=== PATIENT | female | born 1990 | race Caucasian/White ===

== ENCOUNTER 2020-08-30 18:54 | Emergency (ER) | payer BC, SELFPAY ==
--- NOTE | ~2020-08-30 | XR_ITS ---
XR abdomen/kub 1V DATE: 08/30/2020 20:31 INDICATION: Right flank pain today TECHNIQUE: COMPARISON: None FINDINGS: An approximately 5 mm calcification overlies the distal right ureter at the ureterovesical junction, corresponding to the calcified calculus documented on 08/30/[address] abdomen pelv is examination. No other urinary tract calcification is evident. The psoas shadows are intact. No visceromegaly is evident. No evidence of bowel obstruction. An IUD overlies the central pelvis. Included skeletal structures are unremarkable. IMPRESSION: Distal right ureteral calcified approximately 5 mm calculus Reviewed, dictated and finalized at [facility]. Reviewed, dictated and finalized at [facility].
--- NOTE | ~2020-08-30 | CT_ITS ---
EXAMINATION: CT abdomen pelvis wo con DATE: 08/30/2020 20:12 INDICATION: Right flank pain, dysuria TECHNIQUE: Computed tomography (CT) of the abdomen and pelvis was performed without intravenous contr ast. Automated exposure control and iterative reconstruction technique were employed. Exam dose: 742 .44 mGy-cm total exam DLP. COMPARISON: None. FINDINGS: Lung bases are clear. Normal heart size. No pericardial or pleural effusion. The liver, spleen, pancreas, gallbladder, bile ducts and pancreatic duct as well as adrenal glands ap pear normal. No renal mass lesion is evident on this limited noncontrast examination. There is a 3 x 5 mm distal right ureteral calculus with moderate right hydroureteronephrosis as a res ult. No other urinary tract calculus. The urinary bladder is evacuated and not optimally evaluated. IUD within the uterus. The uterus, adnexal areas are unremarkable. Normal appendix. No bowel obstruction, bowel wall thickening, pneumatosis or intraperitoneal free air . Normal caliber of the abdominal aorta. No intraperitoneal or retroperitoneal or pelvic mass lesion or adenopathy or ascites. Included skeletal structures are unremarkable. IMPRESSION: 3 x 5 mm distal right ureteral calculus with moderate right hydroureteronephrosis Reviewed, dictated and finalized at [facility]. Reviewed, dictated and finalized at [facility]. IMPRESSION: 3 x 5 mm distal right ureteral calculus with moderate right hydrou reteronephrosis
[2020-08-30 18:56] VITALS: BP 136/86; PULSE 88; RESP 18; TEMP 36.4; O2SAT 99
--- NOTE | 2020-08-30 19:11 | ED.ABDPAIN ---
HPI - Abdominal Pain General Chief Complaint: Abdominal Pain Stated Complaint: r flank pain Time Seen by Provider: 08/30/20 19:05 Source: RN notes reviewed History of Present Illness HPI narrative: Patient presents to emergency department from home for right flank pain. Patient states pain began suddenly around noon today pain is located in the right flank and radiates around to the right side of the abdomen associate with mild nausea denies any fevers or chills chest pain, shortness of breath, vomiting, diarrhea or any other symptoms. Patient states that she took Tylenol for pain at home with minimal relief Related Data Allergies Allergy/AdvReac Type Severity Reaction Status Date / Time No Known Allergies Allergy Unverified 04/06/13 14:55 Review of Systems Review of Systems: Narrative: Gen.: Denies fevers or chills ENT: Denies congestion Respiratory: Denies shortness of breath or cough CV: Denies chest pain or palpitations GI: See HPI denies burning, urgency, frequency or hematuria Musculoskeletal: Denies back pain or muscle pain Neuro: Denies numbness, tingling, weakness or focal weakness Skin: Denies rash Except as documented, all other systems reviewed and negative [facility] Past Medical History Medical History (Updated 08/30/20 @ 21:14 by Bebeto Lechuga DO) Patient denies significant medical history Social History Social History (Updated 08/30/20 @ 19:12 by Bebeto Lechuga DO) Smoking status: Never smoker Gender identity (if verbalized by the patient): Female Sexual Orientation (if Verbalized by the Patient): Straight or Heterosexual Exam Narrative: Exam Narrative: APPEARANCE: No acute distress, nontoxic, resting in bed HEENT: Normocephalic, atraumatic, OMM RESPIRATORY: No respiratory distress, clear to auscultation bilaterally with no rhonchi wheezing or rales CARDIOVASCULAR: RRR s murmur ABDOMINAL: Soft, nondistended, tender to palpation right upper quadrant lower quadrant no tenderness left lower quadrant left lower quadrant no rebound or guarding, right flank tenderness MUSCULOSKELETAl: Moves all extremities. No clubbing, cyanosis or edema. NEURO: Awake and alert. Following commands, speech normal, no focal deficits SKIN:: Warm, dry. Normal Color PSYCHIATRIC: Normal affect/mood Course Course Emergency Course: Patient states pain is improved at this time Discussed with Dr. Chan for urology presentation work-up agrees plan for discharge request patient start antibiotics Discussed with patient results of workup and diagnosis. Discussed need for follow-up with primary care, proper use of medication, and reasons to return to the emergency department. Patient understands and agrees to current treatment plan Vital Signs Vital signs: Vital Signs Temperature 97.6 F 08/30/20 18:56 Pulse Rate 88 08/30/20 18:56 Respiratory Rate 18 08/30/20 18:56 Blood Pressure 136/86 08/30/20 18:56 Pulse Oximetry 99 08/30/20 18:56 Temperature 97.6 F 08/30/20 18:56 Pulse Rate 88 08/30/20 18:56 Respiratory Rate 18 08/30/20 18:56 Blood Pressure 136/86 08/30/20 18:56 Pulse Oximetry 99 08/30/20 18:56 MDM - Abdominal Pain Lab Data Result diagrams: 08/30/20 19:20 08/30/20 19:20 Labs: Lab Results 08/30/20 08/30/20 08/30/20 Range/Units 19:17 19:20 19:20 WBC 13.3 H (4.5-10.0) K/mm3 RBC 4.80 (4.2-5.4) M/mm3 Hgb 13.3 (12.0-15.0) g/dL Hct 40.2 (37.0-47.0) % MCV 83.8 (80-100) fl MCH 27.7 (26-34) pg MCHC 33.1 (32-36) g/dl RDW 12.8 (11.5-14.5) % Plt Count 256 (150-375) k/mm3 MPV 10.9 H (7.4-10.4) fl Immature Gran % (Auto) 0.3 (0-0.5) % Neut % (Auto) 78.6 H (45.5-73.1) % Lymph % (Auto) 16.2 L (18.3-44.2) % [place] % (Auto) 4.1 (2.6-8.5) % Eos % (Auto) 0.5 (0-4.4) % Baso % (Auto) 0.3 (0.2-1.2) % Lymph # (Auto) 2.16 (0.9-3.2) K/mm3 [place] # (Auto) 0.6 (0.1-0.6) K/mm
[2020-08-30 19:26] LABS: Basophils Percent Auto 0.3 % (0.2-1.2); Eosinophils Absolute Auto 0.1 K/mm3 (0-0.3); Eosinophils Percent Auto 0.5 % (0-4.4); Hematocrit 40.2 % (37.0-47.0); Hemoglobin 13.3 g/dL (12.0-15.0); Immature Granulocyte Absolute 0.04 K/mm3 (0.00-0.031); Immature Granulocyte Percent A 0.3 % (0-0.5); Lymphocytes Absolute Auto 2.16 K/mm3 (0.9-3.2); Lymphocytes Percent Auto 16.2 % (18.3-44.2); Mean Corpuscular HGB Conc 33.1 g/dl (32-36); Mean Corpuscular Hemoglobin 27.7 pg (26-34); Mean Corpuscular Volume 83.8 fl (80-100); Mean Platelet Volume 10.9 fl (7.4-10.4); Monocytes Absolute Auto 0.6 K/mm3 (0.1-0.6); Monocytes Percent Auto 4.1 % (2.6-8.5); Neutrophils Absolute Auto 10.4 K/mm3 (1.3-6.7); Neutrophils Percent Auto 78.6 % (45.5-73.1); Platelet Count Result 256 k/mm3 (150-375); Red Cell Distribution Width 12.8 % (11.5-14.5); White Blood Count 13.3 K/mm3 (4.5-10.0)
[2020-08-30] MEDS: KETOROLAC 30 MG/ML VIAL (*BKC) IV PUSH (19:27)
[2020-08-30] MEDS: SODIUM CHLORIDE 0.9% IV 1,000 ML 999 ML IV CONT (19:27)
[2020-08-30] MEDS: ONDANSETRON INJ 4 MG/2 ML VIAL IV PUSH (19:27)
[2020-08-30 19:38] LABS: Alanine Aminotransferase 50 U/L (4-35); Albumin Level 4.5 g/dL (3.5-5.1); Alkaline Phosphatase 84 U/L (38-126); Anion Gap 8 mmol/L (8-16); Aspartate Amino Transferase 38 U/L (14-36); Bilirubin,Total 0.4 mg/dL (0.2-1.3); Blood Urea Nitrogen 12 mg/dL (7-17); Calcium 9.7 mg/dL (8.4-10.2); Carbon Dioxide 27 mmol/L (22-30); Chloride 104 mmol/L (98-107); Estimated CRCL calculation 102 ml/min; Estimated Glomerular Filt Rate > 60; Glucose 113 mg/dL (65-105); Lipase 75 U/L (23-300); Sodium 139 mmol/L (137-145)
[2020-08-30 19:56] LABS: Add Urine Microscopic? YES; Appearance Urine Cloudy (Clear); Bilirubin Urine 1+ (Negative); Blood Urine 3+ (Negative); Color Urine Yellow (Yellow); Glucose Urine UA Negative (Negative); Ketones Urine Trace mg/dL (Negative); Leukocyte Esterase Ur Trace LEU/UL (Negative); Nitrate Urine Negative (Negative); Protein Urine 1+ mg/dL (Negative); Specific Grav Ur >= 1.030 (1.001-1.035); Urobilinogen Urine 0.2 mg/dL (<2.0); pH Urine 5.5 (5.0-9.0)
[2020-08-30 19:58] LABS: Squamous Epithelial Cell Urine Few /hpf (Few); WBC Urine 0-3 /hpf (0-3)
[2020-08-30 19:59] LABS: Bacteria Urine Trace /hpf; Calcium Oxalate Crystals Urine Present /hpf
[2020-08-30 20:00] LABS: RBC Urine 21-50 /hpf (0-2)
[2020-08-30] MEDS: MORPHINE SULFATE (*CRX) 4 MG/ML INJ IV PUSH (20:51)
[2020-08-30] MEDS: TAMSULOSIN HCL 0.4 MG CAPSULE PO (20:51)
== END 2020-08-30 23:37 | disposition home or self-care (01) ==
PROVIDERS: Emergency Provider Emergency Medicine
DX: N13.2 Hydronephrosis with renal and ureteral calculous obstruction (principal)
CPT/HCPCS: 36415; 74018; 74176; 80053; 81001; 81025; 83690; 85025; 96361; 96365; 96375; 99284; A9270; J0696; J1885; J2270; J2405; J7030

== ENCOUNTER 2020-09-11 11:26 | Outpatient (CLI) | payer BC, SELFPAY ==
--- NOTE | ~2020-09-11 | XR_ITS ---
XR abdomen/kub 1V 09/11/2020 11:38 Indication: Right ureteral stone Procedure: KUB Comparison: 08/30/2020 Findings: Inferior migration of distal right ureteral stone near the expected location of the UVJ. Th ere is an IUD in the pelvis. Bowel gas pattern nonobstructive with moderate colonic fecal loading. No acute osseous abnormality. Impression: 1: Inferior migration of 5 x 2 mm distal right ureteral stone, now near the expected location of the UVJ. Reviewed, dictated and finalized at [facility]. Impression: 1: Inferior migration of 5 x 2 mm distal right ureteral stone, now near the exp ected location of the UVJ.
== END 2020-09-11 11:27 | disposition home or self-care (01) ==
PROVIDERS: Visit Provider Urology
DX: N20.1 Calculus of ureter (principal); Z97.5 Presence of (intrauterine) contraceptive device
CPT/HCPCS: 74018

== ENCOUNTER 2021-11-19 01:57 | Emergency (ER) | payer BC, SELFPAY ==
[2021-11-19 02:05] VITALS: PULSE 127; RESP 22; TEMP 36.2; O2SAT 97
--- NOTE | 2021-11-19 02:15 | ED.ALLEREA ---
HPI - Allergic Reaction General Chief complaint: Allergic Reaction Stated complaint: hives Time Seen by Provider: 11/19/21 02:06 History of Present Illness HPI narrative: 31yoF p/w hives all over her body, states it started earlier tonight and she took a benadryl and went to sleep but woke up covered in hives, she tried calamine cream and hydrocortisone cream without much improvement. Denies any n/v/d, KAMLA or throat/lip swelling, she doesn't think she ate or used anything new, this only happened once before when she was in 4th grade. No allergies to anything she knows of. Related Data Allergies Allergy/AdvReac Type Severity Reaction Status Date / Time No Known Allergies Allergy Unverified 04/06/13 14:55 Review of Systems Review of Systems: CONST: No fever. HEENT: No sore throat C/V: No chest pain RESP: No difficulty breathing GI: No nausea : No dysuria. M/S: No joint pain. SKIN: No rash. NEURO: Lightheadedness, [no headache or focal numbness or weakness] PSYCH: [No depression] [facility] Past Medical History Medical History Patient denies significant medical history Social History Social History Smoking status: Never smoker Gender identity (if verbalized by the patient): Female Sexual Orientation (if Verbalized by the Patient): Straight or Heterosexual Exam Narrative: EXAMINATION OF ORGAN SYSTEMS/BODY AREAS: Constitutional: Vital signs per nursing GENERAL:[No acute distress, non-toxic appearing but does appear slightly uncomfortable.] HEAD: Normal with no signs of head trauma. EYES: EOMI, conjunctiva normal ENT: No lip or tongue swelling, normal speech LUNGS: Nonlabored breathing, clear to auscultation bilaterally HEART: Tachycardic ABD: [Soft], [nontender to palpation] EXT: Normal range of motion, urticaria extensively bilateral arms/legs SKIN: Urticaria diffusely on trunk, extremities NEURO: [Alert and oriented x 3. No gross focal sensory or strength deficits.] PSYCH: Normal affect Course Vital Signs Vital signs: Vital Signs Temperature 97.2 F L 11/19/21 02:05 Pulse Rate 127 H 11/19/21 02:05 Respiratory Rate 22 H 11/19/21 02:05 Pulse Oximetry 97 11/19/21 02:05 Oxygen Delivery Room Air 11/19/21 02:05 Temperature 97.2 F L 11/19/21 02:05 Pulse Rate 127 H 11/19/21 02:05 Respiratory Rate 22 H 11/19/21 02:05 Pulse Oximetry 97 11/19/21 02:05 Oxygen Delivery Room Air 11/19/21 02:05 MDM - Allergic Reaction MDM Narrative Medical decision making narrative: MEDICAL DECISION MAKING AND COURSE IN THE ED WITH INTERPRETATION/REVIEW OF DIAGNOSTIC STUDIES: Electronic medical record was reviewed. Patient presented to the ED with a complaint of severe itching all over. Vitals notable for tachycardia. Physical exam revealed [urticaria without evidence of airway compromise, abdominal tenderness, or anaphylaxis]. Based on the patient's history and physical exam, my differential includes but is not limited to [allergic reaction, idiopathic, contact dermatitis]. [Patient was given hydroxyzine, famotidine, steroids, IV fluids. On re-evaluation, the patient has not had worsening of symptoms here and is stable for discharge and will go home with epi-pen rx, cetirizine, famotidine, and prednisone and followup with PCP, return for further issues. Patient verbalizes understanding. Discharge Plan Discharge Clinical Impression: Urticaria Patient Disposition: Home, Self-Care Condition: Stable Instructions: Antibiotic Form, Urticaria (ED) Additional Instructions: Please follow up with your doctor in 1-2 days and you can always come back if you start feeling worse, or have any difficulty breathing or lightheadedness. Prescriptions: New epinephrine [EpiPen] 0.3 mg/0.3 mL auto-injector 0.3 mg IM Q5-15M PRN (Reason: anaphylaxis) Qty: 2 0RF Rx Instructions: do not exce
[2021-11-19] MEDS: hydrOXYzine HCL 25 MG TABLET 50 MG PO (02:32)
[2021-11-19] MEDS: FAMOTIDINE 20 MG TABLET PO (02:32)
[2021-11-19] MEDS: LACTATED RINGERS 1,000 ML 999 ML IV CONT (02:32)
[2021-11-19] MEDS: predniSONE 20 MG TABLET 40 MG PO (02:33)
[2021-11-19 03:48] VITALS: BP 120/82; PULSE 96; RESP 20; O2SAT 96
== END 2021-11-19 03:50 | disposition home or self-care (01) ==
PROVIDERS: Emergency Provider Emergency Medicine
DX: L50.9 Urticaria, unspecified (principal)
CPT/HCPCS: 96360; 99283; A9270; J7120; J7512